=== PATIENT | male | born 1975 | race African-American/Black ===

== ENCOUNTER 2018-07-31 10:19 | Emergency (ER) | payer BC ==
[~2018-07-31] VITALS: Ht 177.8 cm; Wt 56.7 kg
[2018-07-31] MEDS ORDERED: CYCLOBENZAPRINE HCL 10 MG TAB PO ONE (11:00)
[2018-07-31] MEDS ORDERED: HYDROCODONE/APAP 5MG-325MG TAB PO ONE (11:00)
[2018-07-31] MEDS ORDERED: IBUPROFEN 600 MG TAB PO STA (11:30)
[2018-07-31] MEDS ORDERED: IBUPROFEN 600 MG TAB ONE (11:33)
--- NOTE | 2018-07-31 12:08 | Diagnostic Imaging Report ---
Radiographs of the ribs - 4 views with radiograph of the chest HISTORY: Pain COMPARISON: None available. FINDINGS: Bones: No acute displaced fracture. No rib abnormality is seen. Osseous alignment is within normal limits. Joints: The joint spaces are well-maintained. Soft tissues: No consolidated pneumonia, pleural effusion or pneumothorax. IMPRESSION: No rib abnormality is seen. Signed by: Dr. Smooth Becker M.D. on 07/31/2018 12:05 PM
[2018-07-31 12:27] VITALS: BP 116/57
== END 2018-07-31 12:39 | disposition home or self-care (01) ==
LOC: ER 10:19
DX: S00.83XA Contusion of other part of head, initial encounter (principal); S20.212A Contusion of left front wall of thorax, initial encounter; S00.81XA Abrasion of other part of head, initial encounter; S00.31XA Abrasion of nose, initial encounter; S60.512A Abrasion of left hand, initial encounter; V47.5XXA Car driver injured in collision with fixed or stationary object in traffic accident, initial encounter; Y92.488 Other paved roadways as the place of occurrence of the external cause
CPT/HCPCS: 71101; 99283